=== PATIENT | female | born 1935 | race Caucasian/White ===

== ENCOUNTER 2021-01-21 14:27 | Inpatient (IN) ==
[2021-01-21] MEDS ORDERED: Naloxone 0.4 MG/ML INJ IVP PRN (16:54)
[2021-01-21] MEDS ORDERED: Isovue-370 500 ML BOTTLE IVP ONE (16:54)
[2021-01-21] MEDS ORDERED: MOM Conc 10 ML UD.LIQ PO PRN (16:54)
[2021-01-21] MEDS ORDERED: Mag Hydrox/Al Hydrox/Simeth 30 ML UDC PO PRN (16:54)
[2021-01-21] MEDS ORDERED: Melatonin 3 MG TABLET PO PRN (16:54)
[2021-01-21] MEDS ORDERED: Ondansetron ODT 4 MG TAB.RAPDIS SL PRN (16:54)
[2021-01-21] MEDS: *HR* HYDROcodone/Acet 7.5/325 mg TABLET PO PRN ×2 (18:07→22:26)
[2021-01-21] MEDS: Melatonin 3 MG TABLET PO PRN (22:26)
[2021-01-22 01:01] LABS: Hematocrit 37.1 % (35.3-44.9); Hemoglobin 11.8 g/dL (11.5-15.4); Mean Corpuscular HGB Conc 31.8 g/dL (31.6-35.5); Mean Corpuscular Hemoglobin 29.9 pg (28.0-33.3); Mean Corpuscular Volume 93.9 fL (83.0-100.0); Mean Platelet Volume 12.1 fL (9.4-12.4); Platelet Count 202 K/mcL (140-400); Red Blood Count 3.95 M/mcL (3.82-4.97); Red Cell Distribution Width 15.4 % (11.5-14.5); White Blood Count 7.6 K/mcL (4.3-11.1)
[2021-01-22 01:09] LABS: INR 1.2; Prothrombin Time 13.7 Seconds (9.4-12.1)
[2021-01-22 01:24] LABS: Alanine Aminotransferase 9 Units/L (7-52); Albumin 3.8 g/dL (3.5-5.7); Albumin/Globulin Ratio 1.3 (1.1-2.2); Alkaline Phosphatase 40 Units/L (34-104); Aspartate Amino Transferase 20 Units/L (13-39); BUN/Creatinine Ratio 26 (6-26); Bilirubin,Total 0.4 mg/dL (0.3-1.0); Blood Urea Nitrogen 27 mg/dL (8-23); Calcium 10.1 mg/dL (8.6-10.3); Chloride 106 mEq/L (98-107); Chol/HDL Ratio 2.5 (0-4.9); Cholesterol 120 mg/dL (< 200); Globulin 2.9 g/dL (2.4-3.5); Glucose 105 mg/dL (70-105); HDL Cholesterol 48 mg/dL (40-59); LDL Cholesterol,Calculated 52 mg/dL (< 100); Osmolality,Calculated 291 (280-300); Potassium 3.8 mEq/L (3.5-5.1); Sodium 138 mEq/L (136-145); Total Protein 6.7 g/dL (6.4-8.9); Triglycerides 100 mg/dL (< 150); eGFR For African Americans > 60 (> 60); eGFR For Non-African Americans 51 (> 60)
[2021-01-22 02:09] LABS: Carbon Dioxide 23 mEq/L (23-29)
[2021-01-22 02:53] LABS: Estimated Average Glucose 108 mg/dl; Hemoglobin A1C 5.4 %
[2021-01-22] MEDS: *HR* HYDROcodone/Acet 7.5/325 mg TABLET PO PRN ×5 (04:08→21:42)
[2021-01-22] MEDS: Aspirin Enteric Coated 81 MG Tablet PO SCH (08:11)
[2021-01-22] MEDS ORDERED: Perflutren Lipid Microsphere 1.3 ML in 0.9 % Sodium Chloride 8.7 ML IVP PRN (10:18)
[2021-01-22] MEDS: Melatonin 3 MG TABLET PO PRN (21:42)
[2021-01-23] MEDS: *HR* HYDROcodone/Acet 7.5/325 mg TABLET PO PRN ×4 (02:52→20:46)
[2021-01-23] MEDS: Aspirin Enteric Coated 81 MG Tablet PO SCH (08:10)
[2021-01-23] MEDS ORDERED: NON-FORMULARY MEDICATION 1 EACH EACH (Alendronate Sodium [Fosamax] 70 MG Tablet) PO SCH (08:30)
[2021-01-23] MEDS ORDERED: polyethylene glycoL 3350 17 GM POWD.PACK PO PRN (19:55)
[2021-01-23] MEDS: Melatonin 3 MG TABLET PO PRN (20:46)
[2021-01-24] MEDS: *HR* HYDROcodone/Acet 7.5/325 mg TABLET PO PRN ×5 (02:32→22:37)
[2021-01-24] MEDS: Aspirin Enteric Coated 81 MG Tablet PO SCH (08:28)
[2021-01-24] MEDS: Melatonin 3 MG TABLET PO PRN (22:37)
[2021-01-25] MEDS: *HR* HYDROcodone/Acet 7.5/325 mg TABLET PO PRN ×2 (08:11→14:08)
[2021-01-25] MEDS: Aspirin Enteric Coated 81 MG Tablet PO SCH (08:11)
[2021-01-25 11:55] VITALS: BP 124/43
== END 2021-01-25 17:51 | disposition home health service (06) | DRG 66 ==
LOC: 3BNU → SUATTDRO 16:24
PROVIDERS: ADMIT Internal Medicine; ATTEND Registered Nurse